=== PATIENT | male | born 2000 | race Caucasian/White ===

== ENCOUNTER 2023-07-02 10:07 | Emergency (ER) | payer OTHER ==
[2023-07-02 10:13] VITALS: BP 124/62; PULSE 90; RESP 16; TEMP 98.8; BMI 26.8
[2023-07-02] MEDS ORDERED: IBUPROFEN 400 MG TABLET (FP) PO ONE ×2 (10:16→10:18)
== END 2023-07-02 11:00 | disposition home or self-care (01) ==
LOC: FER 10:07
DX: S49.92XA Unspecified injury of left shoulder and upper arm, initial encounter (principal); M25.512 Pain in left shoulder; X50.0XXA Overexertion from strenuous movement or load, initial encounter; Y93.89 Activity, other specified
CPT/HCPCS: 73030-TC-LT-FY; 99283-25

== ENCOUNTER 2023-10-04 03:46 | Emergency (ER) | payer OTHER ==
[2023-10-04 03:50] VITALS: BP 126/84; BMI 26.8
[2023-10-04 03:53] VITALS: PULSE 80; RESP 16; TEMP 98.9
== END 2023-10-04 05:48 | disposition home or self-care (01) ==
LOC: FER 03:46
DX: S20.212A Contusion of left front wall of thorax, initial encounter (principal); R07.89 Other chest pain; X58.XXXA Exposure to other specified factors, initial encounter; Y93.89 Activity, other specified
CPT/HCPCS: 71101-TC-LT-FY; 99283-25

== ENCOUNTER 2023-12-06 02:35 | Emergency (ER) | payer OTHER ==
[2023-12-06 02:41] VITALS: BP 129/79; PULSE 78; RESP 17; TEMP 98.2; BMI 25.0
[2023-12-06] MEDS ORDERED: IBUPROFEN 400 MG TABLET (FP) PO ONE (02:42)
[2023-12-06] MEDS: IBUPROFEN 400 MG TABLET (FP) PO ONE (02:46)
== END 2023-12-06 03:27 | disposition home or self-care (01) ==
LOC: FER 02:35
DX: S29.012A Strain of muscle and tendon of back wall of thorax, initial encounter (principal); S60.221A Contusion of right hand, initial encounter; S80.211A Abrasion, right knee, initial encounter; S80.212A Abrasion, left knee, initial encounter; W50.0XXA Accidental hit or strike by another person, initial encounter; Y93.72 Activity, wrestling
CPT/HCPCS: 99283-25

== ENCOUNTER 2023-12-28 03:00 | Emergency (ER) | payer OTHER ==
[2023-12-28 03:15] VITALS: BP 142/79; PULSE 89; RESP 16; TEMP 98.2; BMI 25.0
== END 2023-12-28 03:41 | disposition home or self-care (01) ==
LOC: FER 03:00
DX: S63.601A Unspecified sprain of right thumb, initial encounter (principal); S63.610A Unspecified sprain of right index finger, initial encounter; S63.612A Unspecified sprain of right middle finger, initial encounter; S63.614A Unspecified sprain of right ring finger, initial encounter; S63.617A Unspecified sprain of left little finger, initial encounter; Y35.811A Legal intervention involving manhandling, law enforcement official injured, initial encounter
CPT/HCPCS: 99283-25

== ENCOUNTER 2024-01-02 01:57 | Emergency (ER) | payer OTHER ==
[2024-01-02 02:16] VITALS: BP 123/59; PULSE 88; RESP 16; TEMP 97.4; BMI 24.8
[2024-01-02] MEDS ORDERED: ACETAMINOPHEN 500 MG TABLET (FP) ONE (03:22)
[2024-01-02] MEDS: ACETAMINOPHEN 500 MG TABLET (FP) PO ONE (03:25)
== END 2024-01-02 05:17 | disposition home or self-care (01) ==
LOC: FER 01:57
DX: S00.83XA Contusion of other part of head, initial encounter (principal); V49.50XA Passenger injured in collision with unspecified motor vehicles in traffic accident, initial encounter; Y99.0 Civilian activity done for income or pay
CPT/HCPCS: 70450-TC; 99284-25

== ENCOUNTER 2024-03-06 02:34 | Emergency (ER) | payer OTHER ==
[2024-03-06 02:43] VITALS: BP 126/75; PULSE 68; RESP 18; TEMP 98.6; BMI 28.3
[2024-03-06] MEDS ORDERED: KETOROLAC TROMETHAMINE 30 MG/1 ML VIAL ONE (03:37)
[2024-03-06] MEDS: KETOROLAC TROMETHAMINE 30 MG/1 ML VIAL IM ONE (03:42)
== END 2024-03-06 04:44 | disposition home or self-care (01) ==
LOC: JER 02:34
PROC: 3E0133Z Introduction of Anti-inflammatory into Subcutaneous Tissue, Percutaneous Approach (ICD-10-PCS; principal; 2024-03-06)
DX: M79.671 Pain in right foot (principal); M25.571 Pain in right ankle and joints of right foot; V00.148A Other scooter (nonmotorized) accident, initial encounter; Y92.410 Unspecified street and highway as the place of occurrence of the external cause
CPT/HCPCS: 73590-TC-RT-FY; 73610-TC-RT-FY; 73630-TC-RT-FY; 99284-25